=== PATIENT | male | born 1930 | race Caucasian/White ===

== ENCOUNTER 2018-11-12 10:29 | Observation (INO) | payer MEDICARE ==
[~2018-11-12] VITALS: Ht 170.2 cm; Wt 59.0 kg
--- NOTE | 2018-11-12 11:05 | NUR ---
PATIENT AMBULATED TO ROOM WITH STEADY GAIT AND PHYSICIAN NOTIFIED OF PATIENT STATUS
--- NOTE | 2018-11-12 11:50 | NUR ---
PATIENT TOLERATING PO CONTRAST WELL, NO NAUSEA OR VOMITING NOTED. IV SITE PLACED TO RFA #20, BLOOD WORK COLLECTED.
[2018-11-12] MEDS ORDERED: EYE DROPS (11:56)
[2018-11-12 12:07] LABS: HEMATOCRIT 40.3 % (39.0-50.0); HEMOGLOBIN 13.3 g/dl (14.0-18.0); IMMATURE GRANULOCYTES 0.3 % (0.0-5.0); MEAN CELL VOLUME 99.8 fL CALC (80.0-100.0); MEAN CORPUSCULAR HGB 32.9 pG CALC (26.0-32.0); NEUT# 7.9 thou/uL (1.82-7.42); RED BLOOD COUNT 4.04 mill/uL (4.70-6.10); RED CELL DISTRI WIDTH 12.3 % (11.5-15.5)
[2018-11-12 12:28] LABS: ALBUMIN 3.7 g/dL (3.2-5.0); ALKALINE PHOSPHATASE 85 u/l (38-126); ANION GAP 16 (6-22 (CALC)); BILIRUBIN, TOTAL 1.2 mg/dL (0.0-1.4); BUN 17 mg/dL (8-23); BUN/CREATININE RATIO 19 (12-20 (CALC)); CARBON DIOXIDE 25 mmol/l (22-30); CHLORIDE 104 mmol/l (95-108); CREATININE 0.9 mg/dL (0.7-1.3); GFR > 60 ML/MIN (>=60 (CALC)); GFR FOR AFR.AMER. > 60 ML/MIN (>=60 (CALC)); LIPASE 68 u/l (23-300); POTASSIUM 4.3 mmol/l (3.5-5.1); SGOT/AST 28 u/l (19-48); SODIUM 141 mmol/l (137-146); TOTAL PROTEIN 6.7 g/dL (6.3-8.2)
--- NOTE | 2018-11-12 12:45 | NUR ---
PATIENT TO BATHROOM WITH STEADY GAIT.
--- NOTE | 2018-11-12 13:30 | NUR ---
PATIENT RETURNS FROM CT IN STABLE CONDITION.
--- NOTE | 2018-11-12 14:13 | NUR ---
PATIENT RESTING ON STRETCHER NO SIGNS OF DISTRESS NOTED, DENIES ANY ABD PAIN AT THIS TIME, UPDATED ON WAIT TIME. VERBAL UNDERSTANDING. WILL CONTINUE TO MONITOR.
--- NOTE | 2018-11-12 15:13 | NUR ---
AT BEDSIDE TO DISCUSS RESULTS AND PLANS TO ADMIT.
--- NOTE | 2018-11-12 15:26 | NUR ---
ANOOP GAN AT BEDSIDE.
--- NOTE | 2018-11-12 15:26 | NUR ---
ELA GAN AT BEDSIDE.
--- NOTE | 2018-11-12 15:56 | NUR ---
PT ARRIVED TO FLOOR VIA WHEELCHAIR IN STABLE CONDITION ACCOMPANIED BY SOLANGE LEY;PT AMBULATED WITH A STEADY GAIT TO STANDING SCALE AND BEDSIDE;WT AND VS OBTAINED BY BERNY NICHOLE;PT ORIENTED TO ROOM AND CALL LIGHT;PT REPORTS RLQ ABDOMINAL PAIN ON AND OFF FOR THE PAST FEW YEARS,GETTING WORSE LAST NIGHT;PT DENIES ANY CURRENT PAIN, PAIN SCALE AND REPORTING EDUCATED;ASSESSMENT COMPLETED;RESPIRATIONS EVEN AND UNLABORED ON RA,CLEAR LUNG SOUNDS NOTED;ABDOMEN SOFT ON PALPATION AND ACTIVE IN ALL 4 QUADRANTS,LAST BM 11/12/18;STRONG PEDAL PULSES;SKIN INTACT;#20G TO RAC FLUSHED AND PATENT,SITE APPEARS HEALTHY;NPO AFTER MIDNIGHT DIET REINFORCED AND PT VERBALIZES UNDERSTANDING;PT DENIES ANY ADDITIONAL NEEDS AT THIS TIME AND IS INSTRUCTED TO CALL FOR ASSISTANCE IF NEEDED;CALL LIGHT IN REACH;WILL CONTINUE TO MONITOR
--- NOTE | 2018-11-12 16:00 | NUR ---
PATIENT UP TO BATHROOM FOR LOOSE BM. UPDATED IN WAIT TIME. VERBAL UNDERSTANDING. WILL CONTINUE TO MONITOR.
--- NOTE | 2018-11-12 16:37 | NUR ---
REPORT CALLED TO RADHA SIMPSON.
--- NOTE | 2018-11-12 16:54 | NUR ---
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 PERSONAL BELONGINGS SENT TO [facility] WITH PATIENT. CARE RELINQUISHED.
--- NOTE | 2018-11-12 17:30 | NUR ---
AT BEDSIDE DISCUSSING POC.
[2018-11-12 17:52] VITALS: BP 131/80
[2018-11-12 19:00] VITALS: BP 109/55
--- NOTE | 2018-11-13 | NUR ---
pt resting in bed eyes closed. no pain or distress at the moment. pt educated on npo status for upcoming surgery.pt voiced understanding. iv patnet. bed in lowest position. call lightin reach. will monitor.
[2018-11-13 04:00] VITALS: BP 102/56
--- NOTE | 2018-11-13 04:34 | NUR ---
pt resting in bed. eyes closed. no pain or distress noted. will monitor.
--- NOTE | 2018-11-13 04:54 | NUR ---
RESPIRATORY CALLED FOR EKG TO BE COMPLETED PRIOR TO SURGERY.
[2018-11-13 05:59] LABS: IMMATURE GRANULOCYTES 0.4 % (0.0-5.0); MEAN CELL VOLUME 100.3 fL CALC (80.0-100.0); MEAN CORPUSCULAR HGB 32.9 pG CALC (26.0-32.0); MEAN CORPUSCULAR HGB CONC 32.8 g/L CALC (32.0-36.0); NEUT# 3.87 thou/uL (1.82-7.42); RED BLOOD COUNT 3.34 mill/uL (4.70-6.10); RED CELL DISTRI WIDTH 12.3 % (11.5-15.5)
[2018-11-13 06:05] LABS: HEMATOCRIT 33.5 % (39.0-50.0)
[2018-11-13 06:17] LABS: ALKALINE PHOSPHATASE 67 u/l (38-126); AMYLASE 50 u/l (30-110); ANION GAP 13 (6-22 (CALC)); BILIRUBIN, TOTAL 0.6 mg/dL (0.0-1.4); BUN 14 mg/dL (8-23); BUN/CREATININE RATIO 18 (12-20 (CALC)); CARBON DIOXIDE 26 mmol/l (22-30); CHLORIDE 106 mmol/l (95-108); CREATININE 0.8 mg/dL (0.7-1.3); GFR > 60 ML/MIN (>=60 (CALC)); GFR FOR AFR.AMER. > 60 ML/MIN (>=60 (CALC)); LIPASE 45 u/l (23-300); MAGNESIUM 1.9 mg/dL (1.6-2.3); POTASSIUM 4.2 mmol/l (3.5-5.1); SGOT/AST 23 u/l (19-48); SODIUM 140 mmol/l (137-146)
[2018-11-13 06:23] LABS: ALBUMIN 2.7 g/dL (3.2-5.0); TOTAL PROTEIN 5.2 g/dL (6.3-8.2)
--- NOTE | 2018-11-13 07:38 | NUR ---
OR TO BOTTLE WASHER PT TO TAKE HIM TO SURGERY. PT UP TO VOID. CONTINUE TO MONITOR.
--- NOTE | 2018-11-13 08:36 | NUR ---
PT RETURNED FROM OR PROCEDURE WAS CANCELLED, PT IS TO REMAIN NPO. PT SPEAKING TO HIS DAUGHTER ON THE PHONE. ORDER FOR NUCLEAR MED AND U/S, CALL MADE TO OR TO NOTIFY MD THAT NUCLEAR MED UNAVAILABLE ON FRIDAYS. AWAITING CALL BACK. CALL LIGHT IN REACH,CONTINUE TO MONITOR.
[2018-11-13 09:08] VITALS: BP 143/65
[2018-11-13 09:23] VITALS: BP 117/58
--- NOTE | 2018-11-13 10:34 | NUR ---
PT TAKEN DOWN TO U/S OF [place]. TAKEN VIA WHEELCHAIR ACCOMPANIED BY VOLUNTEER.
--- NOTE | 2018-11-13 11:26 | NUR ---
CALLED AND NOTIFIED OF RESULTS OF U/S, ORDERS FOR CLEAR LIQUID DIET. SPOKE WITH SPECIAL EDUCATION PARA PROFESSIONAL AND NOTIFIED OF NEW ORDER. SPECIAL EDUCATION PARA PROFESSIONAL TO SPEAK WITH PT.
--- NOTE | 2018-11-13 14:50 | NUR ---
Discharge instructions given. Patient verbalizes understanding of same. Discharged in stable condition via Ambulatory to Home with *Other. All belongings sent with pt.
== END 2018-11-13 14:50 | disposition home or self-care (01) ==
LOC: ED 10:29 → ED-I 15:10 → ED 15:56 → MS2 15:57
PROVIDERS: Emergency Medicine; ADMIT Internal Medicine Nephrology; ATTEND Internal Medicine Nephrology
DX: R10.13 Epigastric pain (principal); K80.20 Calculus of gallbladder without cholecystitis without obstruction; D64.9 Anemia, unspecified
CPT/HCPCS: J1650; Q9967